=== PATIENT | female | born 1950 ===

== ENCOUNTER 2017-08-20 22:05 | Inpatient (IN) | payer MEDICARE, BC ==
[2017-08-20 22:14] VITALS: BMI 26.5
[2017-08-20] MEDS ORDERED: Sodium Chloride 0.9% 500 ML IV STA (22:56)
--- NOTE | 2017-08-20 23:17 | ED PDOC ---
Arrival/HPI - General Historian: Patient - General Chief Complaint: Abdominal Pain Time Seen by Provider: 08/20/17 22:21 - History of Present Illness Narrative History of Present Illness (Text): 08/20/17 23:14 67 yo F with PMH of DM, complains of sudden onset of constant left flank pain radiating to the left groin which started at 9:30 PM tonight when she was playing bingo with her friends, associated with nausea and vomiting. Otherwise: (-) urinary symptoms, (-) diarrhea, (-) fever, (-) melena, (-) hematochezia. Has no history of prior abdominal surgery. Has no history of prior kidney stones. PMD Cardiello (Hernan BELL,Jing Jimenez) Past Medical History - Provider Review Nursing Documentation Reviewed: Yes - Infectious Disease Hx of Infectious Diseases: None - HEENT Other/Comment: ? Retinal Detachment - Endocrine/Metabolic Hx Diabetes Mellitus Type 2: Yes - Psychiatric Hx Substance Use: No - Surgical History Hx Hysterectomy: Yes - Anesthesia Hx Anesthesia: Yes Hx Anesthesia Reactions: No Hx Malignant Hyperthermia: No Family/Social History - Physician Review Nursing Documentation Reviewed: Yes Family/Social History: No Known Family HX Smoking Status: Never Smoked Hx Alcohol Use: No Hx Substance Use: No Allergies/Home Meds Allergies/Adverse Reactions: Allergies No Known Allergies Allergy (Verified 08/21/17 05:07) Home Medications: Home Meds Medication Instructions Recorded Confirmed Glimepiride [amaRYL] 1 tab PO DAILY 08/20/17 08/20/17 MetFORMIN [glucoPHAGE] 1 tab PO BID 08/20/17 08/20/17 Review of Systems - Review of Systems Constitutional: Normal. absent: Fatigue, Weight Change, Fevers Respiratory: Normal. absent: SOB, Cough, Sputum Cardiovascular: Normal. absent: Chest Pain, Palpitations, Edema Gastrointestinal: Normal, Abdominal Pain, Nausea, Vomiting. absent: Stool Changes, Diarrhea, Appetite Changes Musculoskeletal: Normal, Back Pain. absent: Arthralgias, Neck Pain Skin: Normal. absent: Rash, Pruritis, Skin Lesions Physical Exam Finger Stick Blood Glucose: 339 - Physical Exam Narrative Physical Exam (Text): 08/20/17 23:15 GENERAL APPEARANCE: Patient is awake, alert, oriented x 3, in mild painful distress. SKIN: Warm, dry; (-) cyanosis. EYES: (-) conjunctival pallor, (-) scleral icterus. ENMT: Mucous membranes moist. NECK: (-) tenderness, (-) stiffness, (-) lymphadenopathy. CHEST AND RESPIRATORY: (-) rales, (-) rhonchi, (-) wheezes; breath sounds equal bilaterally. HEART AND CARDIOVASCULAR: (-) irregularity; (-) murmur, (-) gallop. ABDOMEN AND GI: (-) distention. Bowel sounds active; (+) L flank tenderness, ( -) guarding, (-) rebound, (-) palpable masses, (+) L CVA tenderness. EXTREMITIES: (-) deformity, (-) edema, (+) distal pulses. NEURO AND PSYCH: Mental status as above; (-) focal findings. (Hernan BELL, Jing Jimenez) Vital Signs Temp Pulse Resp BP Pulse Ox 08/21/17 03:57 97.5 F L 85 18 131/83 97 08/20/17 22:25 97.5 F L 102 H 18 188/98 H 100 Medical Decision Making ED Course and Treatment: 08/20/17 23:17 67 yo F with PMH of DM, complains of sudden onset of constant left flank pain radiating to the left groin. Plan: -- Labs -- IV fluids -- Urinalysis -- Zofran / Toradol -- Reassess and disposition -- CT AP w/o contrast 08/21/17 01:24 On reevaluation, patient reports complete improvement of her pain, reports no flank abdominal pain at this time, denies any nausea. On exam, patient is laying in bed comfortably in no acute distress, abdomen remained soft with no tenderness, no guarding, no rebound, no CVA tenderness, no flank tenderness. Lab results reviewed : wbc 16, glucose 458, UA +glucose, +large blood, and d/w the patient. CT results reviewed and d/w the patient. Patient states that she did not take her second dose of her oral diabetes medications today. IV insulin 6 mg SC and IV ordered. Considering CT results, call placed to Dr. Goldsmith, as per patient's request. Several calls made to Dr. Goldsmith with no call back, call placed to Dr. Samano's service, as per his service, all his admission will be under the hospitalist in the mean time. Repeat FS 316, after IV insulin was given. Case d/w Dr. Lawrence agree with plan for inpt obs under the hospitalist with consult with Dr. Goldsmith. Patient agrees with current plan of care. (Hernan BELL,Jing Jimenez) d/w dr. Morrison of urology who was informed and will see patient. 08/21/17 06:58 (Kyle Doty) - Lab Interpretations Lab Results: 08/20/17 23:11 08/21/17 00:30 Lab Results 08/21/17 00:30: Sodium 133, Potassium 4.0, Chloride 98, Carbon Dioxide 28, Anion Gap 11, BUN 14, Creatinine 0.8, Est GFR ( Amer) > 60, Est GFR (Non- Af Amer) > 60, Random Glucose 458 H*, Calcium 9.8, Total Bilirubin 0.6, AST 17, ALT 28, Alkaline Phosphatase 112, Total Protein 7.1, Albumin 4.2, Globulin 2.9, Albumin/Globulin Ratio 1.4, Lipase 130 08/20/17 23:12: Urine Color Yellow, Urine Appearance Sl cloudy, Urine pH 6.0, Ur Specific [place] 1.010, Urine Protein Negative, Urine Glucose (UA) >=1000, Urine Ketones Trace H, Urine Blood Large H, Urine Nitrate Negative, Urine Bilirubin Negative, Urine Urobilinogen 0.2, Ur Leukocyte Esterase Negative, Urine RBC Tntc, Urine WBC 0 - 2, Ur Epithelial Cells 1 - 3, Urine Bacteria Few 08/20/17 23:11: WBC 16.1 H, RBC 4.68, Hgb 13.6, Hct 40.4, MCV 86.3, MCH 29.1, MCHC 33.7, RDW 13.2, Plt Count 283, MPV 12.0 H, Gran % 85.0 H, Lymph % (Auto) 9.9 L, [place] % (Auto) 4.4, Eos % (Auto) 0.5 L, Baso % (Auto) 0.2, Gran # 13.71 H , Lymph # 1.6, [place] # 0.7 H, Eos # 0.1, Baso # 0.03 - RAD Interpretation Narrative RAD Interpretations (Text): 08/21/17 00:30 CT A/P w/o contrast : FINDINGS: Lower thorax: Heart size is normal. There coronary artery calcifications. There is a small hiatal hernia. There is nodular pleural thickening at the lung bases. There is no focal consolidation. ABDOMEN: Liver: unremarkable Gallbladder and bile ducts: unremarkable Pancreas: unremarkable Spleen: unremarkable Adrenals: unremarkable Kidneys and ureters: There is a tiny nonobstructing right renal stone.Right kidney and ureter are otherwise unremarkable..There is obstructive uropathy on the left there is 6 mm obstructing distal left ureteral stone Stomach and bowel: Stomach is almost empty. There is a small amount of radiopaque material in the stomach. Rotation is normal. There is no small bowel obstruction. Ileocecal region is unremarkable. Appendix and terminal ileum are unremarkable. Colon is incompletely distended which limits evaluation. Appendix: See stomach and bowel PELVIS: Bladder: unremarkable Reproductive: Uterus is absent. There are no adnexal masses. ABDOMEN and PELVIS: Intraperitoneal space: There is no significant fluid.There is no free air. Bones/joints: There are degenerative changes in the osseus structures. There is a combination lucent and blastic lesion in the L2 vertebral body. Soft tissues: There is a small fat containing umbilical hernia. 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 There are vascular calcifications. There are multiple phleboliths. Lymph nodes: unremarkable IMPRESSION: 6 mm obstructing distal left ureteral stone; lucent and sclerotic lesions in L2 difficult to further characterize Additional findings as described above. Dictated and Authenticated by: Audrey Coronado MD 08/21/2017 12:27 AM Eastern Time ([place] & [place]) (Hernan BELL,Jing Jimenez) Radiology Orders: 08/20/17 22:57 ABD & PELVIS W/O PO OR IV CONT [CT] Stat - Medication Orders Current Medication Orders: Acetaminophen (Tylenol 325mg Tab) 650 mg PO Q6 PRN PRN Reason: Fever >100.4 F Enoxaparin Sodium (Lovenox) 40 mg SC DAILY STEVE PRN Reason: Protocol Sodium Chloride (Sodium Chloride 0.9%) 1,000 mls @ 100 mls/hr IV .Q10H STEVE Last Admin: 08/21/17 05:00 Dose: 100 mls/hr eMAR Start Stop Document 08/21/17 05:00 KTB (Rec: 08/21/17 05:55 KTB [id number]) Intravenous Solution Start Date 08/21/17 Start Time 05:00 Insulin Human Regular (Humulin R Med) 0 units SC ACHS STEVE PRN Reason: Protocol Ketorolac Tromethamine (Toradol) 30 mg IVP Q6 PRN PRN Reason: Pain, severe (8-10) Ondansetron HCl (Zofran Inj) 4 mg IVP Q6 PRN PRN Reason: Nausea/Vomiting Pantoprazole Sodium (Protonix Ec Tab) 40 mg PO 0600 [facility] Last Admin: 08/21/17 05:54 Dose: 40 mg Discontinued Medications Sodium Chloride (Sodium Chloride 0.9%) 500 mls @ 500 mls/hr IV .Q1H STA Stop: 08/20/17 23:55 Last Admin: 08/20/17 23:20 Dose: 500 mls/hr eMAR Start Stop Document 08/20/17 23:20 EQ (Rec: 08/20/17 23:20 EQ [email or web address] Intravenous Solution Start Date 08/20/17 Start Time 23:20 Sodium Chloride (Sodium Chloride 0.9%) 1,000 mls @ 150 mls/hr IV .Q6H40M [facility] Last Admin: 08/21/17 02:51 Dose: 150 mls/hr eMAR Start Stop Document 08/21/17 02:51 EQ (Rec: 08/21/17 02:51 EQ [email or web address] Intravenous Solution Start Date 08/21/17 Start Time 02:51 Ceftriaxone Sodium (Rocephin 1 Gram Ivpb) 1 gm in 100 mls @ 200 mls/hr IVPB STAT STA PRN Reason: Protocol Stop: 08/21/17 02:52 Last Admin: 08/21/17 03:05 Dose: 200 mls/hr eMAR Start Stop Document 08/21/17 03:05 EQ (Rec: 08/21/17 03:05 EQ [email or web address] Intravenous Solution Start Date 08/21/17 Start Time 03:05 Insulin Human Regular (Humulin R) 6 units IV STAT STA Stop: 08/21/17 01:23 Last Admin: 08/21/17 02:50 Dose: 6 units eMAR Start Stop Document 08/21/17 02:50 EQ (Rec: 08/21/17 02:50 [email or web address] Intravenous Solution Start Date 08/21/17 Start Time 02:50 MAR Blood Glucose Document 08/21/17 02:50 EQ (Rec: 08/21/17 02:50 EQ [email or web address] Blood Glucose Finger Stick Blood Glucose (70-120) 315 Insulin Human Regular (Humulin R) 6 units SC STAT STA Stop: 08/21/17 01:24 Last Admin: 08/21/17 02:50 Dose: 6 units MAR Blood Glucose Document 08/21/17 02:50 EQ (Rec: 08/21/17 02:50 EQ [email or web address] Blood Glucose Finger Stick Blood Glucose (70-120) 315 Subcutaneous Administrations Document 08/21/17 02:50 EQ (Rec: 08/21/17 02:50 EQ [email or web address] Injection Site MAR Injection Site Left Arm Charges for Administration # of Subcutaneous Administrations 1 Ketorolac Tromethamine (Toradol) 15 mg IVP STAT STA Stop: 08/20/17 22:57 Last Admin: 08/20/17 23:21 Dose: 15 mg MAR Pain Assessment Document 08/20/17 23:21 EQ (Rec: 08/20/17 23:21 EQ [email or web address] Pain Reassessment Is this a pain reassessment? No Sleep Is patient sleeping during reassessment? No Presence of Pain Presence of Pain Yes IVP Administration Document 08/20/17 23:21 EQ (Rec: 08/20/17 23:21 EQ [email or web address] Charges for Administration # of IVP Administrations 1 Ondansetron HCl (Zofran Inj) 4 mg IVP STAT STA Stop: 08/20/17 22:57 Last Admin: 08/20/17 23:21 Dose: 4 mg IVP Administration Document 08/20/17 23:21 EQ (Rec: 08/20/17 23:21 EQ [email or web address] Charges for Administration # of IVP Administrations 1 - PA / [employer] / Resident Statement /DO has reviewed & agrees with the documentation as recorded. Disposition/Present on Arrival - Present on Arrival Any Indicators Present on Arrival: No History of DVT/PE: No History of Uncontrolled Diabetes: No Urinary Catheter: No History of Decub. Ulcer: No History Surgical Site Infection Following: None - Disposition Have Diagnosis and Disposition been Completed?: Yes Disposition Time: 02:13 Patient Plan: Observation - Disposition Diagnosis: Renal colic on left side Disposition: HOSPITALIZED Condition: STABLE
[2017-08-20 23:19] LABS: BASO # 0.03 K/mm3 (0.0-2.0); BASO % 0.2 % (0.0-3.0); EOS # 0.1 (0.0-0.7); EOS % 0.5 % (1.5-5.0); GRAN # 13.71 (1.4-6.5); HEMATOCRIT 40.4 % (36.0-48.0); LYMPH # 1.6 (1.2-3.4); LYMPH % 9.9 % (22.0-35.0); MEAN CELL VOLUME 86.3 fl (80.0-105.0); MEAN CORPUSCULAR HEMOGLOBIN 29.1 pg (25.0-35.0); MEAN CORPUSCULAR HGB CONC 33.7 g/dl (31.0-37.0); MONO # 0.7 (0.1-0.6); MONO % 4.4 % (1.0-6.0); RED CELL DISTRIBUTION WIDTH 13.2 % (11.5-14.5); WHITE BLOOD COUNT 16.1 10^3/ul (4.5-11.0)
[2017-08-20 23:42] LABS: URINE BILIRUBIN NEGATIVE (NEGATIVE); URINE BLOOD LARGE (NEGATIVE); URINE GLUCOSE (UA) >=1000 mg/dL (NEGATIVE); URINE KETONE TRACE mg/dL (NEGATIVE); URINE LEUKOCYTE ESTERASE NEGATIVE Leu/uL (NEGATIVE); URINE PROTEIN NEGATIVE mg/dL (<30 mg/dL); URINE UROBILINOGEN 0.2 E.U./dL (<1 E.U./dL)
[2017-08-20 23:49] LABS: URINE APPEARANCE SL CLOUDY (CLEAR); URINE COLOR YELLOW (YELLOW)
[2017-08-20 23:59] LABS: URINE BACTERIA FEW (NEG); URINE RBC TNTC /hpf (0-2); URINE WBC 0 - 2 /hpf (0-6)
--- NOTE | 2017-08-21 00:27 | CT ---
EXAM: CT Abdomen and Pelvis Without Intravenous Contrast EXAM DATE/TIME: 08/20/2017 10:57 PM CLINICAL HISTORY: 67 years old, female; Pain; Abdominal pain; Flank; Left; Additional info: L flank pain, R/O stone TECHNIQUE: Axial computed tomography images of the abdomen and pelvis without intravenous contrast. All CT scans at this facility use one or more dose reduction techniques, viz.: automated exposure control; ma/kV adjustment per patient size (including targeted exams where dose is matched to indication; i.e. head); or iterative reconstruction technique. Coronal and sagittal reformatted images were created and reviewed. COMPARISON: There are no prior studies for comparison. FINDINGS: Lower thorax: Heart size is normal. There coronary artery calcifications. There is a small hiatal hernia. There is nodular pleural thickening at the lung bases. There is no focal consolidation. ABDOMEN: Liver: unremarkable Gallbladder and bile ducts: unremarkable Pancreas: unremarkable Spleen: unremarkable Adrenals: unremarkable Kidneys and ureters: There is a tiny nonobstructing right renal stone.Right kidney and ureter are otherwise unremarkable..There is obstructive uropathy on the left there is 6 mm obstructing distal left ureteral stone Stomach and bowel: Stomach is almost empty. There is a small amount of radiopaque material in the stomach. Rotation is normal. There is no small bowel obstruction. Ileocecal region is unremarkable. Appendix and terminal ileum are unremarkable. Colon is incompletely distended which limits evaluation. Appendix: See stomach and bowel PELVIS: Bladder: unremarkable Reproductive: Uterus is absent. There are no adnexal masses. ABDOMEN and PELVIS: Intraperitoneal space: There is no significant fluid.There is no free air. Bones/joints: There are degenerative changes in the osseus structures. There is a combination lucent and blastic lesion in the L2 vertebral body. Soft tissues: There is a small fat containing umbilical hernia. 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 There are vascular calcifications. There are multiple phleboliths. Lymph nodes: unremarkable IMPRESSION: 6 mm obstructing distal left ureteral stone; lucent and sclerotic lesions in L2 difficult to further characterize Additional findings as described above.
[2017-08-21 01:04] LABS: GLUCOSE,RANDOM 458 mg/dL (70-110)
[2017-08-21 01:07] LABS: ALB/GLOB RATIO 1.4 (1.1-1.8); ALKALINE PHOSPHATASE 112 U/L (38-126); ALT/SGPT 28 U/L (7-56); AST/SGOT 17 U/L (14-36); BILIRUBIN,TOTAL 0.6 mg/dL (0.2-1.3); BLOOD UREA NITROGEN 14 mg/dL (7-21); CALCIUM 9.8 mg/dL (8.4-10.5); CARBON DIOXIDE 28 mmol/L (21-33); CHLORIDE 98 mmol/L (98-107); GFR AFRICAN-AMERICAN > 60; LIPASE 130 U/L (23-300); TOTAL PROTEIN 7.1 g/dL (5.8-8.3)
[2017-08-21 01:09] LABS: SODIUM 133 mmol/L (132-148)
[2017-08-21] MEDS ORDERED: Insulin Regular 1 UNITS/0.01 ML ML IV STA (01:22)
[2017-08-21] MEDS ORDERED: Insulin Regular 1 UNITS/0.01 ML ML SC STA (01:23)
[2017-08-21] MEDS ORDERED: Sodium Chloride 0.9% 1,000 ML IV SCH (01:30)
[2017-08-21] MEDS ORDERED: cefTRIAXone 1 gm 1 GM/100 ML BAG IVPB STA (02:23)
--- NOTE | 2017-08-21 02:44 | CP.PCM.HP ---
<Sarah Lopez - Last Filed: 08/21/17 03:09> History of Present Illness - History of Present Illness History of Present Illness: PGY-2 H&P for Hospitalist service 67 yo female with PMH of Diabetes presents with sudden onset of constant left flank pain radiating to the left groin. Patient states that the pain started around 9:30 PM tonight when she was sitting playing bingo with her friends. She states that pain was unchanged with movement or food. She reports 3 episodes of nonbloody nausea and vomiting with chills. She denies urinary symptoms, hematuria, diarrhea, fever, chest pain, sob, melena, hematochezia. She reports one episode of similar pain about 1 month ago, which resolved spontaneously. She denies any history of prior kidney stones. PMD Cardiello PMH: diabetes psh: hysterectomy social history: denies smoking, alcohol use, illicit drug use family history: denies allergy: NKDA home meds: metformin and glipizide Present on Admission - Present on Admission Any Indicators Present on Admission: No Review of Systems - Constitutional Constitutional: Chills. absent: Fatigue, Fever, Headache - EENT Eyes: absent: Change in Vision Nose/Mouth/Throat: absent: Nasal Discharge, Sore Throat - Cardiovascular Cardiovascular: absent: Chest Pain, Dyspnea, Leg Edema, Palpitations, Pedal Edema - Respiratory Respiratory: absent: Cough, Dyspnea, Hemoptysis - Gastrointestinal Gastrointestinal: Nausea, Vomiting. absent: Abdominal Pain, Constipation, Diarrhea, Hematochezia, Melena - Genitourinary Genitourinary: Flank Pain (left). absent: Dysuria, Hematuria, Urinary Frequency , Urinary Hesitance, Hx Renal/Bladder Calculi - Musculoskeletal Musculoskeletal: absent: Arthralgias, Back Pain, Numbness, Stiffness, Tingling - Integumentary Integumentary: absent: Pruritus, Rash, Skin Ulcer, Swelling, Wounds - Neurological Neurological: absent: Dizziness, Numbness, Headaches, Syncope, Weakness - Hematologic/Lymphatic Hematologic: absent: Easy Bleeding, Easy Bruising Past Patient History - Infectious Disease Hx of Infectious Diseases: None - Past Social History Smoking Status: Never Smoked - HEENT Other/Comment: ? Retinal Detachment - ENDOCRINE/METABOLIC Hx Diabetes Mellitus Type 2: Yes - PSYCHIATRIC Hx Substance Use: No - SURGICAL HISTORY Hx Hysterectomy: Yes - ANESTHESIA Hx Anesthesia: Yes Hx Anesthesia Reactions: No Hx Malignant Hyperthermia: No Meds Allergies/Adverse Reactions: Allergies Allergy/AdvReac Type Severity Reaction Status Date / Time No Known Allergies Allergy Verified 08/21/17 05:07 Physical Exam - Constitutional Appears: No Acute Distress - Head Exam Head Exam: ATRAUMATIC, NORMAL INSPECTION, NORMOCEPHALIC - Eye Exam Eye Exam: EOMI, Normal appearance - ENT Exam ENT Exam: Mucous Membranes Moist - Respiratory Exam Respiratory Exam: Clear to Auscultation Bilateral, NORMAL BREATHING PATTERN. absent: Rales, Rhonchi, Wheezes, Respiratory Distress - Cardiovascular Exam Cardiovascular Exam: REGULAR RHYTHM, +S1, +S2. absent: Tachycardia, Systolic Murmur - GI/Abdominal Exam GI & Abdominal Exam: Normal Bowel Sounds, Soft. absent: Distended, Firm, Guarding, Tenderness - Back Exam Back exam: CVA tenderness (L) (mild) - Neurological Exam Neurological exam: Alert, Oriented x3 - Skin Skin Exam: Dry, Intact, Normal Color, Warm Results - Vital Signs Recent Vital Signs: Last Vital Signs Temp 97.5 F L 08/20/17 22:25 Pulse 102 H 08/20/17 22:25 Resp 18 08/20/17 22:25 BP 188/98 H 08/20/17 22:25 Pulse Ox 100 08/20/17 22:25 - Labs Result Diagrams: 08/20/17 23:11 08/21/17 00:30 Labs: Laboratory Results - last 24 hr 08/20/17 08/20/17 08/21/17 23:11 23:12 00:30 WBC 16.1 H RBC 4.68 Hgb 13.6 Hct 40.4 MCV 86.3 MCH 29.1 MCHC 33.7 RDW 13.2 Plt Count 283 MPV 12.0 H Gran % 85.0 H Lymph % (Auto) 9.9 L [place] % (Auto) 4.4 Eos % (Auto) 0.5 L Baso % (Auto) 0.2 Gran # 13.71 H Lymph # 1.6 [place] # 0.7 H Eos # 0.1 Baso # 0.03 Sodium 133 Potassium 4.0 Chloride 98 Carbon Dioxide 28 Anion Gap 11 BUN 14 Creatinine 0.8 Est GFR ( Amer) > 60 Est GFR (Non-Af Amer) > 60 Random Glucose 458 H* Calcium 9.8 Total Bilirubin 0.6 AST 17 ALT 28 Alkaline Phosphatase 112 Total Protein 7.1 Albumin 4.2 Globulin 2.9 Albumin/Globulin Ratio 1.4 Lipase 130 Urine Color Yellow Urine Appearance Sl cloudy Urine pH 6.0 Ur Specific [place] 1.010 Urine Protein Negative Urine Glucose (UA) >=1000 Urine Ketones Trace H Urine Blood Large H Urine Nitrate Negative Urine Bilirubin Negative Urine Urobilinogen 0.2 Ur Leukocyte Esterase Negative Urine RBC Tntc Urine WBC 0 - 2 Ur Epithelial Cells 1 - 3 Urine Bacteria Few Assessment & Plan - Assessment and Plan (Free Text) Assessment: 67 yo female with PMH of Diabetes presents with sudden onset of constant left flank pain radiating to the left groin, ct scan showed 6 mm obstructing distal left stone. Plan: 1. obstructing kidney stone - most likely cause of pain - CT scan showed 6 mm obstructing distal left stone - UA showed blood and RBC, no signs of infection - IVF NS@100, received 1 liter in ED - received 1 dose of ceftriaxone in ED - Toradol for pain - zofran for nausea and vomiting - strain urine - urine cultures - consulted urology, Dr Goldsmith 2. h/o diabetes - elevated in ED, greater then 300 - hole home medication - ISS- med - fingerstick ACHS <Milton Lawrence - Last Filed: 08/21/17 06:28> Results - Vital Signs Recent Vital Signs: Last Vital Signs Temp 98 F 08/21/17 05:06 Pulse 78 08/21/17 05:06 Resp 20 08/21/17 05:06 BP 130/72 08/21/17 05:06 Pulse Ox 97 08/21/17 03:57 - Labs Result Diagrams: 08/20/17 23:11 08/21/17 00:30 Attending/Attestation - Attestation I have personally seen and examined this patient.: Yes I have fully participated in the care of the patient.: Yes I have reviewed all pertinent clinical information: Yes Notes (Text): 08/21/17 06:27 Patient was seen when she was in the ER. Agree with history , physical examination, assessment and plan.
[2017-08-21] MEDS: Sodium Chloride 0.9% 1,000 ML IV SCH ×4 (03:56→13:28)
[2017-08-21 05:37] VITALS: PULSE 78; RESP 20
[2017-08-21] MEDS ORDERED: Pantoprazole 40 mg EC Tab PO SCH (06:00)
[2017-08-21 08:13] VITALS: BP 110/73; TEMP 97.9; O2SAT 99
[2017-08-21 08:34] LABS: BASO # 0.02 K/mm3 (0.0-2.0); BASO % 0.2 % (0.0-3.0); EOS # 0.2 (0.0-0.7); EOS % 1.5 % (1.5-5.0); GRAN % 56.4 % (50.0-68.0); HEMATOCRIT 37.7 % (36.0-48.0); LYMPH # 3.7 (1.2-3.4); LYMPH % 35.1 % (22.0-35.0); MEAN CELL VOLUME 87.5 fl (80.0-105.0); MEAN CORPUSCULAR HEMOGLOBIN 28.8 pg (25.0-35.0); MEAN CORPUSCULAR HGB CONC 32.9 g/dl (31.0-37.0); MEAN PLATELET VOLUME 11.3 fl (7.0-11.0); MONO # 0.7 (0.1-0.6); MONO % 6.8 % (1.0-6.0); RED CELL DISTRIBUTION WIDTH 12.9 % (11.5-14.5); WHITE BLOOD COUNT 10.6 10^3/ul (4.5-11.0)
[2017-08-21] MEDS: Insulin Reg-MEDIUM-Coverage SC SCH ×2 (08:47→12:11)
[2017-08-21 09:11] LABS: ALB/GLOB RATIO 1.2 (1.1-1.8); ALKALINE PHOSPHATASE 88 U/L (38-126); ALT/SGPT 25 U/L (7-56); AST/SGOT 18 U/L (14-36); BILIRUBIN,TOTAL 0.5 mg/dL (0.2-1.3); BLOOD UREA NITROGEN 12 mg/dL (7-21); CALCIUM 8.9 mg/dL (8.4-10.5); CARBON DIOXIDE 28 mmol/L (21-33); CHLORIDE 107 mmol/L (98-107); GFR AFRICAN-AMERICAN > 60; GLUCOSE,RANDOM 96 mg/dL (70-110); POTASSIUM 3.5 mmol/L (3.6-5.0); SODIUM 140 mmol/L (132-148); TOTAL PROTEIN 6.4 g/dL (5.8-8.3)
[2017-08-21] MEDS ORDERED: guaiFENesin DM 200 mg-20 mg/10 ml UD PO PRN (09:17)
[2017-08-21] MEDS ORDERED: Magnesium Citrate Oral SOL (300 ml) PO ONE (09:17)
[2017-08-21] MEDS ORDERED: Enoxaparin 40 mg Syringe SC SCH (10:00)
[2017-08-21] MEDS ORDERED: cefTRIAXone 1 gm 1 GM/100 ML BAG IVPB SCH (10:00)
[2017-08-21] MEDS ORDERED: Albuterol-Ipratrop 3 mg / 0.5 (3 ml) UD IH SCH (11:30)
--- NOTE | 2017-08-21 14:41 | RAD ---
HISTORY: RENAL COLIC COMPARISON: No prior. FINDINGS: BOWEL: Retained stool in the right colon. No evidence of bowel obstruction. No abnormal intra-abdominal calcifications are appreciated. BONES: Normal. OTHER FINDINGS: None. IMPRESSION: No evidence renal calculus.
--- NOTE | 2017-08-21 23:12 | CARD ---
APPROVED REPORT EKG Measurement Heart [id number] <Conclusion> Normal sinus rhythm Normal ECG
--- NOTE | 2017-08-23 07:07 | CP.PCM.DIS ---
Provider - Provider Date of Admission: 08/21/17 02:24 Attending physician: Robbie Case MD Consults: Urology: Dr. Morrison Time Spent in preparation of Discharge (in minutes): 45 Diagnosis - Discharge Diagnosis (1) Kidney stone Status: Acute Priority: Medium (2) Renal colic on left side Status: Acute Priority: Medium (3) Diabetes mellitus Status: Chronic Priority: Medium Hospital Course - Lab Results Lab Results: Most Recent Lab Values WBC 10.6 10^3/ul (4.5-11.0) D 08/21/17 08:00 RBC 4.31 10^6/uL (3.5-6.1) 08/21/17 08:00 Hgb 12.4 g/dL (12.0-16.0) 08/21/17 08:00 Hct 37.7 % (36.0-48.0) 08/21/17 08:00 MCV 87.5 fl (80.0-105.0) 08/21/17 08:00 MCH 28.8 pg (25.0-35.0) 08/21/17 08:00 MCHC 32.9 g/dl (31.0-37.0) 08/21/17 08:00 RDW 12.9 % (11.5-14.5) 08/21/17 08:00 Plt Count 265 10^3/uL (120.0-450.0) 08/21/17 08:00 MPV 11.3 fl (7.0-11.0) H 08/21/17 08:00 Gran % 56.4 % (50.0-68.0) 08/21/17 08:00 Lymph % (Auto) 35.1 % (22.0-35.0) H 08/21/17 08:00 [place] % (Auto) 6.8 % (1.0-6.0) H 08/21/17 08:00 Eos % (Auto) 1.5 % (1.5-5.0) 08/21/17 08:00 Baso % (Auto) 0.2 % (0.0-3.0) 08/21/17 08:00 Gran # 6.00 (1.4-6.5) 08/21/17 08:00 Lymph # 3.7 (1.2-3.4) H 08/21/17 08:00 [place] # 0.7 (0.1-0.6) H 08/21/17 08:00 Eos # 0.2 (0.0-0.7) 08/21/17 08:00 Baso # 0.02 K/mm3 (0.0-2.0) 08/21/17 08:00 Sodium 140 mmol/L (132-148) 08/21/17 08:00 Potassium 3.5 mmol/L (3.6-5.0) L 08/21/17 08:00 Chloride 107 mmol/L (98-107) 08/21/17 08:00 Carbon Dioxide 28 mmol/L (21-33) 08/21/17 08:00 Anion Gap 10 (10-20) 08/21/17 08:00 BUN 12 mg/dL (7-21) 08/21/17 08:00 Creatinine 0.7 mg/dl (0.7-1.2) 08/21/17 08:00 Est GFR ( Amer) > 60 08/21/17 08:00 Est GFR (Non-Af Amer) > 60 08/21/17 08:00 POC Glucose (mg/dL) 140 mg/dL (65-110) H 08/21/17 11:43 Random Glucose 96 mg/dL (70-110) 08/21/17 08:00 Calcium 8.9 mg/dL (8.4-10.5) 08/21/17 08:00 Total Bilirubin 0.5 mg/dL (0.2-1.3) 08/21/17 08:00 AST 18 U/L (14-36) 08/21/17 08:00 ALT 25 U/L (7-56) 08/21/17 08:00 Alkaline Phosphatase 88 U/L (38-126) 08/21/17 08:00 Total Protein 6.4 g/dL (5.8-8.3) 08/21/17 08:00 Albumin 3.5 g/dL (3.0-4.8) 08/21/17 08:00 Globulin 2.9 gm/dL 08/21/17 08:00 Albumin/Globulin Ratio 1.2 (1.1-1.8) 08/21/17 08:00 Lipase 130 U/L (23-300) 08/21/17 00:30 Urine Color Yellow (YELLOW) 08/20/17 23:12 Urine Appearance Sl cloudy (CLEAR) 08/20/17 23:12 Urine pH 6.0 (4.7-8.0) 08/20/17 23:12 Ur Specific [place] 1.010 (1.005-1.035) 08/20/17 23:12 Urine Protein Negative mg/dL (<30 mg/dL) 08/20/17 23:12 Urine Glucose (UA) >=1000 mg/dL (NEGATIVE) 08/20/17 23:12 Urine Ketones Trace mg/dL (NEGATIVE) H 08/20/17 23:12 Urine Blood Large (NEGATIVE) H 08/20/17 23:12 Urine Nitrate Negative (NEGATIVE) 08/20/17 23:12 Urine Bilirubin Negative (NEGATIVE) 08/20/17 23:12 Urine Urobilinogen 0.2 E.U./dL (<1 E.U./dL) 08/20/17 23:12 Ur Leukocyte Esterase Negative [place]/uL (NEGATIVE) 08/20/17 23:12 Urine RBC Tntc /hpf (0-2) 08/20/17 23:12 Urine WBC 0 - 2 /hpf (0-6) 08/20/17 23:12 Ur Epithelial Cells 1 - 3 /hpf (0-5) 08/20/17 23:12 Urine Bacteria Few (NEG) 08/20/17 23:12 - Hospital Course Hospital Course: Patient is a 67 yo female with PMH of Diabetes presents with sudden onset of constant left flank pain radiating to the left groin found to have a kidney stone of 6 mm. During course of hospital visit, Urology was consulted concerning the kidney stone. With pain management, stated her pain had improved. Patient was then cleared for discharged considering her normal labs and stable vitals. Patient was instructed to follow up PMD Dr. valencia in 3 days, then follow up with urologist Dr. Chani Goldsmith next week by calling [phone] to set up an appointment and to also plan for lithotripsy next week if stone does not pass on its own. During course of hospital visit patient was prescribed flowmax which patient was instructed to continue. Patient was also provided with percocet for pain relief. Plan was discussed with attending, resident, and patient. All were in agreement with plan; patient was then discharged. Discharge Exam - Head Exam Head Exam: ATRAUMATIC, NORMAL INSPECTION, NORMOCEPHALIC - Eye Exam Eye Exam: EOMI, Normal appearance - ENT Exam ENT Exam: Normal Exam - Respiratory Exam Respiratory Exam: NORMAL BREATHING PATTERN, UNREMARKABLE - Cardiovascular Exam Cardiovascular Exam: REGULAR RHYTHM, +S1, +S2 - GI/Abdominal Exam GI & Abdominal Exam: Normal Bowel Sounds, Unremarkable - Rectal Exam Rectal Exam: NORMAL INSPECTION - Back Exam Back exam: NORMAL INSPECTION. absent: CVA tenderness (L), CVA tenderness (R), paraspinal tenderness, rash noted, tenderness - Neurological Exam Neurological exam: Alert, CN II-XII Intact, Oriented x3 - Psychiatric Exam Psychiatric exam: Normal Mood - Skin Skin Exam: Intact, Normal Color, Warm Discharge Plan - Discharge Medications Prescriptions: oxyCODONE/Acetaminophen [Percocet 5/325 mg Tab] 1 ea PO Q6 #12 tab Tamsulosin [Flomax] 0.4 mg PO DAILY #30 cap - Follow Up Plan Condition: STABLE Disposition: HOME/ ROUTINE Instructions: Renal Colic (GEN) Additional Instructions: 1. Follow up PMD Dr. valencia in 3 days. 2. Follow up with Dr. Chani Goldsmith next week. Call [phone]. Plan for lithotripsy next week if stone does not pass. 3. Continue flomax. Referrals: Chani Goldsmith MD [Staff Provider] -
== END 2017-08-21 15:40 | disposition home or self-care (01) | DRG 694 ==
LOC: ED 22:05 → ERH 08-21 02:24 → 3RNO 08-21 04:36
PROVIDERS: ADMIT Internal Medicine; ATTEND Internal Medicine
DX: N20.2 Calculus of kidney with calculus of ureter (principal); E11.9 Type 2 diabetes mellitus without complications; Z90.710 Acquired absence of both cervix and uterus